=== PATIENT | male | born 1940 | race Caucasian/White ===

== ENCOUNTER → 2017-05-30 | Outpatient (CLI) | payer MEDICARE ==
--- NOTE | 2017-05-30 11:59 | XR ---
EXAMINATION TYPE: XR chest 2V DATE OF EXAM: 05/30/2017 HISTORY: J44.9 COPD I71.4 N40.1. REFERENCE: Previous study dated 06/08/2014. FINDINGS: There has been interval insertion of a bipolar pacemaker via a left subclavian approach. Ap proximately overlies the right atrium and distally overlies the right ventricle. There is been a midline sternotomy. The lungs are overinflated but clear. Pleural spaces are clear. The heart is not enlarged. There is u nfolding of the thoracic aorta. There is hypertrophic spondylosis within the spine. IMPRESSION: 1. SATISFACTORY PACEMAKER [employer]ACEMENT. 2. COPD.
[2017-05-30 12:17] LABS: Appearance,Urine Clear (Clear); Bilirubin,Urine Negative (Negative); Glucose,Urine (UA) Negative (Negative); Ketones,Urine Negative (Negative); Leukocyte Esterase,Urine Negative (Negative); Nitrite,Urine Negative (Negative); Protein,Urine Negative (Negative); Specific Gravity,Urine 1.005 (1.001-1.035); UA Billing (MACRO vs. MICRO) CHEM; Urobilinogen,Urine <2.0 mg/dL (<2.0)
[2017-05-30 12:33] LABS: CH 28.3; HDW 2.33; HGB 12.6 gm/dL (13.0-17.5); MCH 28.8 pg (25.0-35.0); MCHC 32.4 g/dL (31.0-37.0); RBC 4.38 m/uL (4.30-5.90); RDW 15.1 % (11.5-15.5); WBC 10.9 k/uL (3.8-10.6)
[2017-05-30 12:35] LABS: Anion Gap 11 mmol/L; Blood Urea Nitrogen 22 mg/dL (9-20); Calcium 9.3 mg/dL (8.4-10.2); Carbon Dioxide 25 mmol/L (22-30); Chloride 103 mmol/L (98-107); Glucose 80 mg/dL (74-99); Non-African American GFR(MDRD) 54 (>60 ml/min/1.73 sqM); Potassium 4.6 mmol/L (3.5-5.1); Sodium 139 mmol/L (137-145)
== END | disposition home or self-care (01) ==
LOC: RADXRMAIN 11:29
PROVIDERS: ATTEND Internal Medicine
DX: J44.9 Chronic obstructive pulmonary disease, unspecified (principal); I71.4 Abdominal aortic aneurysm, without rupture; N40.1 Benign prostatic hyperplasia with lower urinary tract symptoms
CPT/HCPCS: 36415; 71020; 80048; 81003; 85027

== ENCOUNTER → 2017-08-10 | Outpatient (CLI) | payer MEDICARE, OTHER ==
--- NOTE | 2017-08-10 15:39 | CT ---
EXAMINATION TYPE: CT angio abdomen pelvis DATE OF EXAM: 08/10/2017 COMPARISON: NONE INDICATION: AAA. DLP: 2254 mGycm, Automated exposure control for dose reduction was used. CONTRAST: 100 mL of Omnipaque 300. Study performed without Oral Contrast TECHNIQUE: Axial images were obtained from above the diaphragm to the pubic rami in the axial plane a t 5 mm thick sections. Reconstructed images are reviewed on the computer in the coronal plane. FINDINGS: Limited CT sections are obtained the lung bases. The lung bases are clear. CT ABDOMEN: Liver: Normal Spleen: Multiple calcified granuloma are within the spleen. Pancreas: Normal Adrenal glands: The adrenal glands are normal. Gallbladder: Multiple gallstones are present. Kidneys: No masses are evident. No hydronephrosis is present. No cysts are present. Kidneys appear somewhat atrophic. Suspicious cortical thinning however is not identified. 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 Stent is present through the aneurysm. Pre and postcontrast thrombosed aneurysm appears stable without evidence of endovascular leak. Three-D reconstructed images are performed through the aorta and iliac vessels which appear patent. N o dissection within the aortic stent is evident. Inferior vena cava: Normal. CT PELVIS: Loops of bowel within the abdomen and pelvis are normal. Study is performed without oral contrast limiting its evaluation. Appendix: Normal as visualized. Urinary bladder: Normal. Genitourinary structures: Osseous structures: No suspicious lytic or sclerotic lesions. There is a left inguinal low-density collection anterior to the vascular structures could be a hemato ma. Contrast is not identified within this. Thrombosed pseudoaneurysm could be considered within the differential. This area measures 2.9 x 4.1 cm in size. IMPRESSIONS: 1. No dissection within the aortic stent. No endovascular leak evident. 2. Cholelithiasis.
== END | disposition home or self-care (01) ==
LOC: RADCTMAIN 14:21
PROVIDERS: ATTEND Internal Medicine
DX: Z48.812 Encounter for surgical aftercare following surgery on the circulatory system (principal); K80.20 Calculus of gallbladder without cholecystitis without obstruction; Z95.828 Presence of other vascular implants and grafts
CPT/HCPCS: 74174; Q9967